=== PATIENT | female | born 1980 | race Caucasian/White ===

== ENCOUNTER 2020-11-11 17:37 | Emergency (ER) | payer OTHER ==
[2020-11-11 18:08] LABS: BILIRUBIN NEGATIVE (NEGATIVE); BLOOD NEGATIVE Ery/uL (NEGATIVE); CLARITY CLEAR (CLEAR); COLOR STRAW (YELLOW); GLUCOSE (U) NORMAL (NORMAL); LEUKOCYTES 1+ Leu/uL (NEGATIVE); NITRITE NEGATIVE (NEGATIVE); PROTEIN NEGATIVE (NEGATIVE); SPECIFIC GRAVITY <=1.005 (1.001-1.030); UROBILINOGEN 0.2 mg/dL (0.2-1.0)
[2020-11-11 18:15] LABS: BACTERIA 1+
[2020-11-11 18:27] LABS: BASOPHIL 0.6 % (0-2); EOSINOPHIL 3.9 % (0-5); HCT 41.8 % (37.0-47.0); HGB 13.3 g/dl (12.5-16.0); LYMPHOCYTE 23.2 % (15-48); MCH 29.8 pg (25.0-31.0); MCHC 31.8 g/dL (32.0-36.0); MCV 93.5 fL (78.0-100.0); MONOCYTE 3.4 % (0-12); MPV 9.1 fL (6.0-9.5); NEUTROPHIL 68.4 % (41-80); NRBC 0; PLT 266 K/uL (150-400); RBC 4.47 M/uL (4.20-5.40); RDW 12.4 % (11.5-14.0); WBC 12.5 K/uL (4.0-10.5)
[2020-11-11 18:45] LABS: ALBUMIN 3.8 g/dL (3.4-5.0); BILIRUBIN - TOTAL 0.3 mg/dL (0.2-1.0); BUN/CREAT RATIO (CALC) 9.1 RATIO; CREATININE 0.77 mg/dL (0.51-0.95); GLOBULIN (CALCULATION) 3.2 g/dL; POTASSIUM 3.7 mmol/L (3.5-5.1)
[2020-11-11 21:40] LABS: FT4 (FREE T4) 0.8 ng/dL (0.76-1.46)
== END 2020-11-11 21:40 | disposition home or self-care (01) ==
LOC: FER 17:37
PROVIDERS: Emergency Medicine Emergency Medical Services; Internal Medicine
DX: R11.0 Nausea (principal); R63.1 Polydipsia; T43.595A Adverse effect of other antipsychotics and neuroleptics, initial encounter; F17.210 Nicotine dependence, cigarettes, uncomplicated; Z88.1 Allergy status to other antibiotic agents; Z98.51 Tubal ligation status; Y92.9 Unspecified place or not applicable
CPT/HCPCS: 36415; 80053; 80178; 81001; 82150; 83690; 84439; 84443; 85025; 99284